=== PATIENT | female | born 1955 | race African-American/Black ===

== ENCOUNTER 2021-11-01 04:54 | Emergency (ER) | payer MEDICARE, MEDICAID, SELFPAY ==
--- NOTE | 2021-11-01 | ECG_ITS ---
Test Reason : CHEST PAIN Blood Pressure : / mmHG Vent. Rate : 089 BPM Atrial Rate : 089 BPM P-R Int : 172 ms QRS Dur : 066 ms QT Int : 320 ms P-R-T Axes : 012 012 063 degrees QTc Int : 389 ms Normal sinus rhythm Normal ECG No previous ECGs available Referred By: Generic ED Physician Electronically Signed By:LEONEL SHANKAR MD
--- NOTE | ~2021-11-01 | XR_ITS ---
EXAMINATION: XR CHEST CLINICAL INFORMATION: Chest pain. COMPARISON: None TECHNIQUE: Frontal view of the chest was obtained. FINDINGS: Images are obtained with right anterior oblique orientation. Making allowances for this orientation, the cardiac silhouette is grossly normal in size. No effusions or pneumothoraces identified. No focal pulmonary consolidation noted. Grossly normal pattern of pulmonary vasculature. XR/XR chest 1V IMPRESSION: No acute cardiopulmonary abnormalities.
[2021-11-01 05:04] VITALS: BP 130/79; BP 134/71; PULSE 101; PULSE 97; RESP 26; TEMP 36.6; O2SAT 95; O2SAT 96; BMI 39.8
[2021-11-01 06:02] LABS: Basophils Percent Auto 0.5 % (0-2); Eosinophils Absolute Auto 0.1 X10*3/uL (0.0-0.4); Eosinophils Percent Auto 1.7 % (0-4); Imm Gran Abs Auto 0.03 X10*3/uL (0.00-0.03); Imm Gran Pct Auto 0.4 % (0.0-0.4); Lymphocytes Absolute Auto 2.3 X10*3/uL (1.2-4.9); Lymphocytes Percent Auto 27.3 % (20-40); MANUAL DIFF FLAG NO; Mean Corpuscular HGB Conc 31.4 g/dl (31.0-35.0); Mean Corpuscular Hemoglobin 26.2 pg (27.0-33.0); Mean Corpuscular Volume 83.3 fL (80.0-98.0); Mean Platelet Volume 9.7 fL (9.4-12.3); Monocytes Absolute Auto 0.8 X10*3/uL (0.1-1.2); Monocytes Percent Auto 9.2 % (2-11); Neutrophils Absolute Auto 5.1 x10*3/uL (2.0-8.3); Neutrophils Percent Auto 60.9 % (45-73); Platelet Count 312 X10*3/uL (160-400); Red Cell Distribution Width 15.5 % (11.0-16.0); White Blood Count 8.3 X10*3/uL (4.8-10.8)
[2021-11-01 06:06] VITALS: BP 135/80; PULSE 90; RESP 29; O2SAT 95
[2021-11-01 06:22] LABS: Alanine Aminotransferase 22 U/L (0-31); Albumin Level 3.9 g/dL (3.5-5.0); Alkaline Phosphatase 103 U/L (39-117); Anion Gap 12 (12-20); Aspartate Amino Transferase 17 U/L (5-31); Bilirubin Direct < 0.2 mg/dL (0.0-0.5); Bilirubin Total < 0.2 mg/dL (0.0-1.0); Blood Urea Nitrogen 22 mg/dL (9-16); COVID-19 Test Negative (Negative); Carbon Dioxide 24 mmol/L (22-29); Chloride 113 mmol/L (96-108); Creatinine Clr Calc Pharmacy 57.4; Estimated Glomerular Filt Rate 50; Glucose Random 106 mg/dL (60-115); Magnesium 1.9 mg/dL (1.6-2.6); Potassium 4.8 mmol/L (3.3-5.1); Sodium 144 mmol/L (135-145); Total Protein 6.9 g/dL (6.5-8.0)
[2021-11-01 06:25] LABS: Troponin-I High Sensitivity 3.6 ng/L (<3.5-17.0)
--- NOTE | 2021-11-01 06:26 | ED.CHESTPAIN ---
HPI - Chest Pain General Chief Complaint: Chest Pain Stated Complaint: cp Time Seen by Provider: 11/01/21 05:16 Source: patient Mode of arrival: EMS Limitations: no limitations History of Present Illness HPI narrative: 66-year-old female who presents emergency department for evaluation of left-sided chest pain. Patient states that she has had constant chest pain x2 days. The patient points to her left anterior chest when asked to localize the pain. The pain is a constant, sharp pain which is worse with breathing and with coughing. The pain is 10/10 at its worst. Patient states she has a for 2 days. She also states she has had nausea. She denied fever, chills. She has had rhinorrhea. She denied sore throat. She feels short of breath but denied dyspnea on exertion. She denied abdominal pain frequency, urgency or dysuria. MD complaint: chest pain Pertinent past history: asthma Onset (ago): day(s) (2) Timing of current episode: constant Onset: during rest and during exertion Pain location: left chest (Anterior) Pain radiation: none Severity: severe Pain scale (0-10): 10 Quality: sharp Relieving factors: nothing Exacerbating factors: inspiration and other (Cough) Associated symptoms: nausea and cough Treatment prior to arrival: other (Aspirin) Risk Factors Coronary artery disease risk factors: none Related Data On Oral Contraceptives: No Previous Rx's Medication Instructions Recorded promethazine 25 mg rectal 25 mg MT Q6H PRN nausea and 11/01/21 suppository (Promethegan) vomiting #12 ea Allergies Allergy/AdvReac Type Severity Reaction Status Date / Time hydrocodone Allergy Unknown Verified 11/01/21 05:13 morphine Allergy Unknown Verified 11/01/21 05:13 naproxen [From Naprosyn] Allergy Unknown Verified 11/01/21 05:13 Penicillins Allergy Difficulty Verified 11/01/21 05:13 Breathing propoxyphene Allergy Unknown Verified 11/01/21 05:13 tramadol Allergy Unknown Verified 11/01/21 05:13 Review of Systems Review of Systems: Yes all other systems are reviewed and are negative [facility] Past Medical History [facility] Narrative: Past medical history: Anxiety, schizophrenia, asthma. Social history: The patient is residing in a [facility] facility. She denies tobacco, alcohol and drug use. Social History Social History Advance Directives: No Physical Exam Vital Signs: Vital Signs: Last Vital Signs Temp 98 F 11/01/21 05:04 Pulse 93 11/01/21 06:54 Resp 30 H 11/01/21 06:54 BP 128/86 11/01/21 06:54 Pulse Ox 95 11/01/21 06:54 O2 Del Method 11/01/21 06:54 BMI result Body Mass Index 39.8 Const: General: cooperative and no acute distress Orientation/consciousness: oriented to person and oriented to place Limitations: no limitations HEENT: Head: Yes normal to inspection, Yes normocephalic and Yes atraumatic Ears: external ears normal General nose exam: Normal external nose present Face and sinus: Yes normal facial exam Mouth: Normal oral and palatal mucosa present Throat: Yes posterior oropharynx normal Eyes: General: appearance normal, both eyes and all related structures Pupils: Equal, round and reactive pupils present Neck: Neck: Yes normal visual inspection, Yes no lymphadenopathy, Yes trachea midline and Yes supple Chest: Chest palpation & inspection: normal inspection of the chest and tenderness (Moderate chest wall tenderness) Resp: Effort & Inspection: normal respiratory effort and able to speak in complete sentences Auscultation: clear to auscultation bilaterally Cardio: Rate: regular rate Rhythm: regular rhythm Heart sounds: S1 normal heart sound present, S2 normal heart sound present and no murmurs GI: Inspection: Yes normal to inspection Palpation (GI): Soft to palpation, nontender and no guarding Auscultation: normal bowel sounds : General: Yes no CVA tenderness Back/Spine/Pelvis: Back: no CVA tenderness Skin: General skin exam: no rashes or lesions noted Neuro: General: oriented to person and oriented to place Cranial nerves: Yes CN's II-XII intact bilaterally and Yes Equal, round and reactive pupils present Cognition (Neuro): normal cognition Motor exam (neuro): 5/5 motor strength present throughout Extrem: General: Yes normal to inspection Psych: Appearance: grossly normal Speech and movement: Normal speech and movement present Affect: normal affect Attitude: cooperative Thought process: Normal thought process present Thought content: Normal thought content present Course Course Course Narrative: 66-year-old female who presents emergency department for evaluation of 2 days left anterior chest pain which is sharp, constant with no radiation. Patient has had a nonproductive cough x2 days. She has also had nausea and vomiting. Vital signs revealed an elevated respiratory rate of 26, otherwise unremarkable. Physical examination did reveal left sided chest wall tenderness and clear lungs. Laboratory evaluation including CBC, CMP, troponin, EKG, chest x-ray will be obtained. Patient was ordered to get normal saline IV x1 L. her nausea and pain were treated with Phenergan 12.5 mg IV and Toradol 15 mg IV. 0649: Laboratory evaluation: Anemia with an H&H of 11 and 35. Elevated BUN 22. High sensitivity troponin I detectable but not elevated at 3.6. COVID-19 was negative. Radiology evaluation: Chest x-ray was interpreted as no acute disease by the radiologist. EKG: Normal sinus rhythm with a rate of [address] segment elevation depression. 0931: Patient is feeling better, she states that her chest discomfort is improved but not resolved completely, she was ordered to get a 2nd dose of Toradol 15 mg IV. Patient also states that she is feeling anxious but she cannot take lorazepam therefore she was given Benadryl 50 mg IV. The patient was able to eat 2 sandwiches and drank juice without any difficulty. She will be discharged back to her care facility with a prescription for Phenergan 25 mg p.r. Q 6 hours as needed for nausea and vomiting. MDM - Chest Pain Lab Data Result diagrams: 11/01/21 05:54 11/01/21 05:54 Labs: Lab Results 11/01/21 11/01/21 11/01/21 Range/Units 05:54 05:54 05:54 WBC 8.3 (4.8-10.8) X10*3/uL RBC 4.20 (4.20-5.50) X10*6/uL Hgb 11.0 L (12.0-16.0) g/dl Hct 35.0 L (37.0-47.0) % MCV 83.3 (80.0-98.0) fL MCH 26.2 L (27.0-33.0) pg MCHC 31.4 (31.0-35.0) g/dl RDW 15.5 (11.0-16.0) % Plt Count 312 (160-400) X10*3/uL MPV 9.7 (9.4-12.3) fL Immature Gran % (Auto) 0.4 (0.0-0.4) % Neut % (Auto) 60.9 (45-73) % Lymph % (Auto) 27.3 (20-40) % [place] % (Auto) 9.2 (2-11) % Eos % (Auto) 1.7 (0-4) % Baso % (Auto) 0.5 (0-2) % Lymph # (Auto) 2.3 (1.2-4.9) X10*3/uL [place] # (Auto) 0.8 (0.1-1.2) X10*3/uL Eos # (Auto) 0.1 (0.0-0.4) X10*3/uL Baso # (Auto) 0.0 (0.0-0.2) X10*3/uL Abs Immat Gran (auto) 0.03 (0.00-0.03) X10*3/uL Absolute Neuts (auto) 5.1 (2.0-8.3) x10*3/uL Absolute Nucleated RBC 0.000 (0.0-0.012) X10*3/uL Nucleated RBC % (auto) 0.0 (0.0-0.2) /100WBC Sodium 144 (135-145) mmol/L Potassium 4.8 (3.3-5.1) mmol/L Chloride 113 H (96-108) mmol/L Carbon Dioxide 24 (22-29) mmol/L Anion Gap 12 (12-20) BUN 22 H (9-16) mg/dL Creatinine 1.10 (0.5-1.4) mg/dL Estim Creat Clear Calc 57.4 Estimated GFR 50 Random Glucose 106 (60-115) mg/dL Calcium 9.0 (8.4-10.2) mg/dL Magnesium 1.9 (1.6-2.6) mg/dL Total Bilirubin < 0.2 (0.0-1.0) mg/dL Direct Bilirubin < 0.2 (0.0-0.5) mg/dL AST 17 (5-31) U/L ALT 22 (0-31) U/L Alkaline Phosphatase 103 (39-117) U/L Troponin I High Sens 3.6 (<3.5-17.0) ng/L Total Protein 6.9 (6.5-8.0) g/dL Albumin 3.9 (3.5-5.0) g/dL COVID-19 ([facility]) (Negative) COVID-19 Clin Com 11/01/21 Range/Units 05:54 WBC (4.8-10.8) X10*3/uL RBC (4.20-5.50) X10*6/uL Hgb (12.0-16.0) g/dl Hct (37.0-47.0) % MCV (80.0-98.0) fL MCH (27.0-33.0) pg MCHC (31.0-35.0) g/dl RDW (11.0-16.0) % Plt Count (160-400) X10*3/uL MPV (9.4-12.3) fL Immature Gran % (Auto) (0.0-0.4) % Neut % (Auto) (45-73) % Lymph % (Auto) (20-40) % [place] % (Auto) (2-11) % Eos % (Auto) (0-4) % Baso % (Auto) (0-2) % Lymph # (Auto) (1.2-4.9) X10*3/uL [place] # (Auto) (0.1-1.2) X10*3/uL Eos # (Auto) (0.0-0.4) X10*3/uL Baso # (Auto) (0.0-0.2) X10*3/uL Abs Immat Gran (auto) (0.00-0.03) X10*3/uL Absolute Neuts (auto) (2.0-8.3) x10*3/uL Absolute Nucleated RBC (0.0-0.012) X10*3/uL Nucleated RBC % (auto) (0.0-0.2) /100WBC Sodium (135-145) mmol/L Potassium (3.3-5.1) mmol/L Chloride (96-108) mmol/L Carbon Dioxide (22-29) mmol/L Anion Gap (12-20) BUN (9-16) mg/dL Creatinine (0.5-1.4) mg/dL Estim Creat Clear Calc Estimated GFR Random Glucose (60-115) mg/dL Calcium (8.4-10.2) mg/dL Magnesium (1.6-2.6) mg/dL Total Bilirubin (0.0-1.0) mg/dL Direct Bilirubin (0.0-0.5) mg/dL AST (5-31) U/L ALT (0-31) U/L Alkaline Phosphatase (39-117) U/L Troponin I High Sens (<3.5-17.0) ng/L Total Protein (6.5-8.0) g/dL Albumin (3.5-5.0) g/dL COVID-19 ([facility]) Negative (Negative) COVID-19 Clin Com See Note ECG Data ECG #1: Attestation: I personally reviewed and interpreted this ECG as follows: Interpretation: 0651: Normal sinus rhythm with a rate of 89, normal intervals, no ST segment elevation, depression, no PACs, no PVCs, no significant T-wave abnormalities Discharge Plan Discharge Clinical Impression: Chest pain, Nausea & vomiting Patient Disposition: [facility] Transfer Details: Return back to patient's [facility] facility Instructions: Chest Pain (ED), Acute Nausea and Vomiting (ED) Additional Instructions: Your blood work was unremarkable. Your EKG was normal. Your chest x-ray was unremarkable. Your COVID-19 test was negative Your nausea was treated with Phenergan 12.5 mg IV and this seemed to improve the symptoms, your able to eat 2 sandwiches and drink juice which is reassuring. You also received Toradol IV for your chest pain and Benadryl 50 mg IV for your anxiety. Take Phenergan 25 mg suppositories, 1 suppository 6 hours as needed for nausea or vomiting. Follow-up with your doctor in 2 days. Please return to the emergency department if your symptoms get worse or if you develop any symptoms that are concerning to you. Prescriptions: New promethazine [Promethegan] 25 mg suppository 25 mg MT Q6H PRN (Reason: nausea and vomiting) Qty: 12 0RF
[2021-11-01 06:54] VITALS: BP 128/86; PULSE 93; RESP 30; O2SAT 95
[2021-11-01] MEDS: Ketorolac Tromethamine 15 MG/ML VIAL IVPUSH ×2 (07:19→09:37)
[2021-11-01] MEDS: 0.9 % Sodium Chloride 1,000 ML 999 ML IV (07:30)
[2021-11-01] MEDS: diphenhydrAMINE HCL 50 MG/ML VIAL IVPUSH (09:36)
== END 2021-11-01 10:57 | disposition skilled nursing facility (03) ==
PROVIDERS: Emergency Medicine; Emergency Provider Emergency Medicine Emergency Medical Services; PCP Internal Medicine
DX: R07.9 Chest pain, unspecified (principal); R11.2 Nausea with vomiting, unspecified; J45.909 Unspecified asthma, uncomplicated; Z20.822 Contact with and (suspected) exposure to COVID-19
CPT/HCPCS: 71045; 80048; 80076; 83735; 84484; 85025; 87635; 93005; 96361; 96374; 96375; 96376; 99284; 99285; J1200; J1885; J2550

== ENCOUNTER 2022-01-15 09:18 | Emergency (ER) | payer MEDICARE, MEDICAID, SELFPAY ==
--- NOTE | ~2022-01-15 | CT_ITS ---
EXAMINATION: CT HEAD WITHOUT CONTRAST CT CERVICAL SPINE WITHOUT CONTRAST CLINICAL INFORMATION: Reason for Exam gen weakness, fall COMPARISON: None. TECHNIQUE: Imaging was performed from the skull base to vertex without intravenous administration of contrast. In addition, helical noncontrast CT imaging was acquired through the cervical spine and source images were reviewed along with axial reconstructions and sagittal and coronal MPRs. This CT examination was performed using dose optimization techniques as appropriate, variously including the following: *Automated exposure control. *Adjustment of mA and/or kV according to patient size (this includes techniques or standardized protocols for targeted exams where dose is matched to indication/reason for exam; i.e. extremities or head). *Use of iterative reconstruction technique. Total exam dose-length product 1750 mGy-cm FINDINGS: HEAD: No intracranial mass, hemorrhage, or midline shift is visualized. The ventricles and sulci are age-appropriate. No extra-axial collections are identified. The paranasal sinuses and mastoid air cells are well aerated. CERVICAL SPINE: Evaluation is suboptimal due to motion related artifacts. Grossly, there is no evidence of any fracture, subluxation or dislocation is present. Multilevel moderate degenerative spondylosis related changes are noted within the lower cervical spine. No prevertebral or paravertebral soft tissue abnormality is identified. Limited assessment of the lung apices is unremarkable. CT/CT cervical spine wo IV con IMPRESSION: 1. No acute intracranial pathology. 2. Evaluation of the cervical spine is technically limited due to motion related artifacts. No gross evidence of any fracture, subluxation or dislocation. Multilevel moderate degenerative spondylosis at lower cervical spine.
--- NOTE | ~2022-01-15 | XR_ITS ---
EXAMINATION: CHEST, BILATERAL SHOULDER, BILATERAL KNEE CLINICAL INFORMATION: Fall, injury. COMPARISON: None TECHNIQUE: Each shoulder 3 views. Each knee 4 views. Chest 2 views. FINDINGS: Right shoulder: The glenohumeral joint space is mildly reduced. There is loss of right AC joint space with periarticular spurring. No bony erosive changes. No visible acute fracture, dislocation or subluxation seen. The soft tissues are normal. Left shoulder: The glenohumeral joint space is normal. There is mild reduction in the left AC joint space. The there is inferior acromial spurring. No visible acute fracture or dislocation seen. Right knee: There is moderate loss of medial compartment joint space with moderate periarticular spurring. The lateral compartment joint space is normal. No visible acute fracture, dislocation or subluxation seen. No abnormal suprapatellar joint effusion seen. There is moderate-sized anterior superior patellar enthesophyte. Left knee: There is moderate loss of medial and patellofemoral compartment joint space with periarticular spurring. There is moderate anterior superior patellar enthesophyte. No abnormal joint effusion. No bony erosive changes. No visible acute fracture or dislocation seen. Chest x-ray: The lungs are somewhat expanded with patchy opacity seen in the right lung base likely atelectasis with elevated right posterior hemidiaphragm heart size and pulmonary vascularity is normal. No gross bony abnormality seen. XR/XR knee LT 4V IMPRESSION: Elevated right hemidiaphragm with likely right lower lobe atelectasis. Rest lungs are clear. Mild degenerative changes bilateral knee joints but no acute fracture or dislocation seen. No joint effusion seen. Mild degenerative changes bilateral AC joint. No visible acute fracture dislocation involving the shoulders.
--- NOTE | ~2022-01-15 | XR_ITS ---
EXAMINATION: CHEST, BILATERAL SHOULDER, BILATERAL KNEE CLINICAL INFORMATION: Fall, injury. COMPARISON: None TECHNIQUE: Each shoulder 3 views. Each knee 4 views. Chest 2 views. FINDINGS: Right shoulder: The glenohumeral joint space is mildly reduced. There is loss of right AC joint space with periarticular spurring. No bony erosive changes. No visible acute fracture, dislocation or subluxation seen. The soft tissues are normal. Left shoulder: The glenohumeral joint space is normal. There is mild reduction in the left AC joint space. The there is inferior acromial spurring. No visible acute fracture or dislocation seen. Right knee: There is moderate loss of medial compartment joint space with moderate periarticular spurring. The lateral compartment joint space is normal. No visible acute fracture, dislocation or subluxation seen. No abnormal suprapatellar joint effusion seen. There is moderate-sized anterior superior patellar enthesophyte. Left knee: There is moderate loss of medial and patellofemoral compartment joint space with periarticular spurring. There is moderate anterior superior patellar enthesophyte. No abnormal joint effusion. No bony erosive changes. No visible acute fracture or dislocation seen. Chest x-ray: The lungs are somewhat expanded with patchy opacity seen in the right lung base likely atelectasis with elevated right posterior hemidiaphragm heart size and pulmonary vascularity is normal. No gross bony abnormality seen. XR/XR shoulder LT min 2V IMPRESSION: Elevated right hemidiaphragm with likely right lower lobe atelectasis. Rest lungs are clear. Mild degenerative changes bilateral knee joints but no acute fracture or dislocation seen. No joint effusion seen. Mild degenerative changes bilateral AC joint. No visible acute fracture dislocation involving the shoulders.
--- NOTE | ~2022-01-15 | CT_ITS ---
EXAMINATION: CT HEAD WITHOUT CONTRAST CT CERVICAL SPINE WITHOUT CONTRAST CLINICAL INFORMATION: Reason for Exam gen weakness, fall COMPARISON: None. TECHNIQUE: Imaging was performed from the skull base to vertex without intravenous administration of contrast. In addition, helical noncontrast CT imaging was acquired through the cervical spine and source images were reviewed along with axial reconstructions and sagittal and coronal MPRs. This CT examination was performed using dose optimization techniques as appropriate, variously including the following: *Automated exposure control. *Adjustment of mA and/or kV according to patient size (this includes techniques or standardized protocols for targeted exams where dose is matched to indication/reason for exam; i.e. extremities or head). *Use of iterative reconstruction technique. Total exam dose-length product 1750 mGy-cm FINDINGS: HEAD: No intracranial mass, hemorrhage, or midline shift is visualized. The ventricles and sulci are age-appropriate. No extra-axial collections are identified. The paranasal sinuses and mastoid air cells are well aerated. CERVICAL SPINE: Evaluation is suboptimal due to motion related artifacts. Grossly, there is no evidence of any fracture, subluxation or dislocation is present. Multilevel moderate degenerative spondylosis related changes are noted within the lower cervical spine. No prevertebral or paravertebral soft tissue abnormality is identified. Limited assessment of the lung apices is unremarkable. CT/CT head/brain wo IV con IMPRESSION: 1. No acute intracranial pathology. 2. Evaluation of the cervical spine is technically limited due to motion related artifacts. No gross evidence of any fracture, subluxation or dislocation. Multilevel moderate degenerative spondylosis at lower cervical spine.
--- NOTE | ~2022-01-15 | XR_ITS ---
EXAMINATION: CHEST, BILATERAL SHOULDER, BILATERAL KNEE CLINICAL INFORMATION: Fall, injury. COMPARISON: None TECHNIQUE: Each shoulder 3 views. Each knee 4 views. Chest 2 views. FINDINGS: Right shoulder: The glenohumeral joint space is mildly reduced. There is loss of right AC joint space with periarticular spurring. No bony erosive changes. No visible acute fracture, dislocation or subluxation seen. The soft tissues are normal. Left shoulder: The glenohumeral joint space is normal. There is mild reduction in the left AC joint space. The there is inferior acromial spurring. No visible acute fracture or dislocation seen. Right knee: There is moderate loss of medial compartment joint space with moderate periarticular spurring. The lateral compartment joint space is normal. No visible acute fracture, dislocation or subluxation seen. No abnormal suprapatellar joint effusion seen. There is moderate-sized anterior superior patellar enthesophyte. Left knee: There is moderate loss of medial and patellofemoral compartment joint space with periarticular spurring. There is moderate anterior superior patellar enthesophyte. No abnormal joint effusion. No bony erosive changes. No visible acute fracture or dislocation seen. Chest x-ray: The lungs are somewhat expanded with patchy opacity seen in the right lung base likely atelectasis with elevated right posterior hemidiaphragm heart size and pulmonary vascularity is normal. No gross bony abnormality seen. XR/XR knee RT 4V IMPRESSION: Elevated right hemidiaphragm with likely right lower lobe atelectasis. Rest lungs are clear. Mild degenerative changes bilateral knee joints but no acute fracture or dislocation seen. No joint effusion seen. Mild degenerative changes bilateral AC joint. No visible acute fracture dislocation involving the shoulders.
--- NOTE | ~2022-01-15 | XR_ITS ---
EXAMINATION: CHEST, BILATERAL SHOULDER, BILATERAL KNEE CLINICAL INFORMATION: Fall, injury. COMPARISON: None TECHNIQUE: Each shoulder 3 views. Each knee 4 views. Chest 2 views. FINDINGS: Right shoulder: The glenohumeral joint space is mildly reduced. There is loss of right AC joint space with periarticular spurring. No bony erosive changes. No visible acute fracture, dislocation or subluxation seen. The soft tissues are normal. Left shoulder: The glenohumeral joint space is normal. There is mild reduction in the left AC joint space. The there is inferior acromial spurring. No visible acute fracture or dislocation seen. Right knee: There is moderate loss of medial compartment joint space with moderate periarticular spurring. The lateral compartment joint space is normal. No visible acute fracture, dislocation or subluxation seen. No abnormal suprapatellar joint effusion seen. There is moderate-sized anterior superior patellar enthesophyte. Left knee: There is moderate loss of medial and patellofemoral compartment joint space with periarticular spurring. There is moderate anterior superior patellar enthesophyte. No abnormal joint effusion. No bony erosive changes. No visible acute fracture or dislocation seen. Chest x-ray: The lungs are somewhat expanded with patchy opacity seen in the right lung base likely atelectasis with elevated right posterior hemidiaphragm heart size and pulmonary vascularity is normal. No gross bony abnormality seen. XR/XR shoulder RT min 2V IMPRESSION: Elevated right hemidiaphragm with likely right lower lobe atelectasis. Rest lungs are clear. Mild degenerative changes bilateral knee joints but no acute fracture or dislocation seen. No joint effusion seen. Mild degenerative changes bilateral AC joint. No visible acute fracture dislocation involving the shoulders.
--- NOTE | ~2022-01-15 | XR_ITS ---
EXAMINATION: CHEST, BILATERAL SHOULDER, BILATERAL KNEE CLINICAL INFORMATION: Fall, injury. COMPARISON: None TECHNIQUE: Each shoulder 3 views. Each knee 4 views. Chest 2 views. FINDINGS: Right shoulder: The glenohumeral joint space is mildly reduced. There is loss of right AC joint space with periarticular spurring. No bony erosive changes. No visible acute fracture, dislocation or subluxation seen. The soft tissues are normal. Left shoulder: The glenohumeral joint space is normal. There is mild reduction in the left AC joint space. The there is inferior acromial spurring. No visible acute fracture or dislocation seen. Right knee: There is moderate loss of medial compartment joint space with moderate periarticular spurring. The lateral compartment joint space is normal. No visible acute fracture, dislocation or subluxation seen. No abnormal suprapatellar joint effusion seen. There is moderate-sized anterior superior patellar enthesophyte. Left knee: There is moderate loss of medial and patellofemoral compartment joint space with periarticular spurring. There is moderate anterior superior patellar enthesophyte. No abnormal joint effusion. No bony erosive changes. No visible acute fracture or dislocation seen. Chest x-ray: The lungs are somewhat expanded with patchy opacity seen in the right lung base likely atelectasis with elevated right posterior hemidiaphragm heart size and pulmonary vascularity is normal. No gross bony abnormality seen. XR/XR chest 2V IMPRESSION: Elevated right hemidiaphragm with likely right lower lobe atelectasis. Rest lungs are clear. Mild degenerative changes bilateral knee joints but no acute fracture or dislocation seen. No joint effusion seen. Mild degenerative changes bilateral AC joint. No visible acute fracture dislocation involving the shoulders.
--- NOTE | 2022-01-15 09:25 | ED.FALL ---
HPI - Fall General Chief Complaint: Fall Stated Complaint: FALL,LT SHLDR PAIN,-THINNERS,-LOC Time Seen by Provider: 01/15/22 09:24 Source: patient and EMS Mode of arrival: EMS Limitations: no limitations History of Present Illness HPI Narrative: 66 yo female with history of anxiety, asthma, schizophrenia coming from [facility] with reports of fall. Patient reports for the last 2 days she has felt generally weak. Today while walking she lost her balance striking her left shoulder on the wall and landing on both of her knees. Pain in left shoulder and difficulty moving her arm d/t pain. She denies any hitting of the head or loss of consciousness. She denies pre fall symptoms of dizziness, palpitations, headache, chest pain, shortness of breath. She denies any cough, fever or urinary symptoms. She is not on any AC therapy. Related Data Previous Rx's Medication Instructions Recorded promethazine 25 mg rectal 25 mg MI Q6H PRN nausea and 11/01/21 suppository (Promethegan) vomiting #12 ea Allergies Allergy/AdvReac Type Severity Reaction Status Date / Time hydrocodone Allergy Unknown Verified 11/01/21 05:13 morphine Allergy Unknown Verified 11/01/21 05:13 naproxen [From Naprosyn] Allergy Unknown Verified 11/01/21 05:13 Penicillins Allergy Difficulty Verified 11/01/21 05:13 Breathing propoxyphene Allergy Unknown Verified 11/01/21 05:13 tramadol Allergy Unknown Verified 11/01/21 05:13 Review of Systems Review of Systems: Yes all other systems are reviewed and are negative Constitutional: Constitutional: Reports no additional constitutional complaints, Denies body ache(s), Denies chills, Denies fever(s), Denies headache(s) and Reports weakness Eyes: Eyes: Reports no additional eye complaints and Denies change in vision ENT: Reports system reviewed and no additional complaints, except as documented, Denies dizziness, Denies headache(s), Denies nasal congestion, Denies nasal discharge and Denies neck pain Cardiovascular: Cardiovascular: Reports no additional cardiovascular complaints, Denies chest pain, Denies leg edema and Denies dyspnea Respiratory: Respiratory: Reports no additional respiratory complaints, Denies cough and Denies dyspnea Gastrointestinal: Gastrointestinal: Reports no additional gastrointestinal complaints, Denies abdominal pain, Denies diarrhea, Denies nausea and Denies vomiting Genitourinary: Genitourinary: Reports no additional female genitourinary complaints and Denies urinary incontinence Musculoskeletal: Musculoskeletal: Reports no additional musculoskeletal complaints, Denies back pain, Reports arthralgias, Reports joint swelling, Reports limited range of motion, Denies neck pain, Denies numbness and Denies tingling Integumentary/Breasts: Skin/Breast: Reports system reviewed and no additional complaints, except as docu and Denies rash Neurologic: Reports system reviewed and no additional complaints, except as documented, Denies Abnormal speech present, Denies dizziness, Denies headache(s), Denies numbness, Denies tingling and Reports weakness PMFSH Past Medical History Attestation statement: The following information was validated with the patient. Source: old records reviewed and nursing notes reviewed Social History Social History Alcohol intake: never Patient Tobacco Use Status: Never used Tobacco Use of substances other than those prescribed or required for medical reasons: No Advance Directives: Yes Advance Directives on File: Yes Advance Directives Date on File: 11/03/21 Physical Exam Vital Signs: Vital Signs: Last Vital Signs Temp 98.8 F 01/15/22 15:39 Pulse 92 01/15/22 15:39 Resp 16 01/15/22 13:35 BP 104/80 01/15/22 15:39 Pulse Ox 96 01/15/22 15:39 O2 Del Method 01/15/22 15:39 BMI result Body Mass Index 41.1 Const: General: cooperative, healthy appearing, comfortable and no acute distress Orientation/consciousness: patient oriented x3 Limitations: no limitations HEENT: Head: Yes normal to inspection Ears: hearing grossly normal bilaterally and TM's normal bilaterally General nose exam: Normal external nose present Face and sinus: Yes normal facial exam Mouth: Normal oral and palatal mucosa present Throat: Yes posterior oropharynx normal Eyes: General: appearance normal, both eyes and all related structures Pupils: Equal, round and reactive pupils present Neck: Other: No midline tenderness/step offs or deformities Neck: Yes normal visual inspection, Yes full ROM, Yes no lymphadenopathy and Yes no meningeal signs Chest: Chest palpation & inspection: normal inspection of the chest Resp: Effort & Inspection: normal respiratory effort Auscultation: clear to auscultation bilaterally Cardio: Rate: regular rate Rhythm: regular rhythm Peripheral pulses: Peripheral pulses 2+ throughout GI: Inspection: Yes normal to inspection Palpation (GI): Soft to palpation and nontender Auscultation: normal bowel sounds Back/Spine/Pelvis: Thoracic/Lumbar Spine: thoracic and lumbar spine normal to inspection Skin: General skin exam: no rashes or lesions noted Neuro: Other: Strength 4/5 all four extremities General: patient oriented x3, moves all extremities, no meningeal signs, no focal motor deficits, normal sensation to monofilament and Unable to assess gait Cranial nerves: Yes CN's II-XII intact bilaterally, Yes Equal, round and reactive pupils present, Yes Bilaterally intact EOM present, Yes Nystagmus not present, Yes Normal facial strength present and Yes Midline tongue present Cognition (Neuro): normal cognition Speech: No Abnormal speech present Gait exam (Neuro): Unable to assess gait Sensory Exam: Normal double simultaneous stimulation for sensation Extrem: Other: Tenderness to bilateral anterior knees with no obvious swelling, ecchymosis or deformity. FROM Tenderness to left proximal humerus and distal clavicle with limited abduction d/t pain. NV intact distally. General: Yes normal to inspection Course Course Course Narrative: Labs are unremarkable. CT head and neck show no acute finding. X-ray show no acute fracture. UA is negative for infection. Plan for discharge back to [facility] MDM - Fall MDM Narrative Medical decision making narrative: 66 yo female from SNF with reports of fall which patient reports is secondary to loss of balance with several days of generalized weakness. No focal neurological finding. VSS. Fall with landing on both knees and striking left shoulder. Needs x-ray. Also r/o underlying cause of gen weakness so will obtain CT head/cervical spine, EKG, labs, UA Medical Records Attestation: I reviewed the patient's medical records. Lab Data Attestation: I reviewed the patient's lab results. Result diagrams: 01/15/22 12:26 01/15/22 Unknown Labs: Lab Results 01/15/22 01/15/22 01/15/22 Range/Units 11:50 12:26 12:26 WBC 8.0 (4.8-10.8) X10*3/uL RBC 4.51 (4.20-5.50) X10*6/uL Hgb 11.9 L (12.0-16.0) g/dl Hct 37.6 (37.0-47.0) % MCV 83.4 (80.0-98.0) fL MCH 26.4 L (27.0-33.0) pg MCHC 31.6 (31.0-35.0) g/dl RDW 15.5 (11.0-16.0) % Plt Count 302 (160-400) X10*3/uL MPV 9.8 (9.4-12.3) fL Immature Gran % (Auto) 0.5 H (0.0-0.4) % Neut % (Auto) 61.3 (45-73) % Lymph % (Auto) 26.7 (20-40) % [place] % (Auto) 9.6 (2-11) % Eos % (Auto) 1.1 (0-4) % Baso % (Auto) 0.8 (0-2) % Lymph # (Auto) 2.1 (1.2-4.9) X10*3/uL [place] # (Auto) 0.8 (0.1-1.2) X10*3/uL Eos # (Auto) 0.1 (0.0-0.4) X10*3/uL Baso # (Auto) 0.1 (0.0-0.2) X10*3/uL Abs Immat Gran (auto) 0.04 H (0.00-0.03) X10*3/uL Absolute Neuts (auto) 4.9 (2.0-8.3) x10*3/uL Absolute Nucleated RBC 0.000 (0.0-0.012) X10*3/uL Nucleated RBC % (auto) 0.0 (0.0-0.2) /100WBC Sodium (135-145) mmol/L Potassium (3.3-5.1) mmol/L Chloride (96-108) mmol/L Carbon Dioxide (22-29) mmol/L Anion Gap (12-20) BUN (9-16) mg/dL Creatinine (0.5-1.4) mg/dL Estim Creat Clear Calc Estimated GFR Random Glucose (60-115) mg/dL Calcium (8.4-10.2) mg/dL Magnesium (1.6-2.6) mg/dL Total Bilirubin (0.0-1.0) mg/dL Direct Bilirubin (0.0-0.5) mg/dL AST (5-31) U/L ALT (0-31) U/L Alkaline Phosphatase (39-117) U/L Troponin I High Sens < 3.5 (<3.5-17.0) ng/L Total Protein (6.5-8.0) g/dL Albumin (3.5-5.0) g/dL Urine Color Yellow Urine Appearance Clear Urine pH 5.5 (5.0-9.0) Ur Specific [place] 1.020 (1.005-1.025) Urine Protein 100 (2+) H (Neg-Trace) mg/dL Urine Glucose (UA) Negative (Negative) mg/dL Urine Ketones Negative (Negative) mg/dL Urine Blood Negative (Negative) Urine Nitrite Negative (Negative) Ur Leukocyte Esterase Negative (Negative) Urine RBC 0-2 (0-2) /HPF Urine WBC 0-5 (0-5) /HPF Ur Squamous Epith Cells 3-5 (0-2) /HPF Urine Bacteria None Seen (None Seen) Hyaline Casts 0-2 (0-2) /LPF 01/15/22 Range/Units Unknown WBC (4.8-10.8) X10*3/uL RBC (4.20-5.50) X10*6/uL Hgb (12.0-16.0) g/dl Hct (37.0-47.0) % MCV (80.0-98.0) fL MCH (27.0-33.0) pg MCHC (31.0-35.0) g/dl RDW (11.0-16.0) % Plt Count (160-400) X10*3/uL MPV (9.4-12.3) fL Immature Gran % (Auto) (0.0-0.4) % Neut % (Auto) (45-73) % Lymph % (Auto) (20-40) % [place] % (Auto) (2-11) % Eos % (Auto) (0-4) % Baso % (Auto) (0-2) % Lymph # (Auto) (1.2-4.9) X10*3/uL [place] # (Auto) (0.1-1.2) X10*3/uL Eos # (Auto) (0.0-0.4) X10*3/uL Baso # (Auto) (0.0-0.2) X10*3/uL Abs Immat Gran (auto) (0.00-0.03) X10*3/uL Absolute Neuts (auto) (2.0-8.3) x10*3/uL Absolute Nucleated RBC (0.0-0.012) X10*3/uL Nucleated RBC % (auto) (0.0-0.2) /100WBC Sodium 140 (135-145) mmol/L Potassium 5.4 H (3.3-5.1) mmol/L Chloride 111 H (96-108) mmol/L Carbon Dioxide 14 L (22-29) mmol/L Anion Gap 20 (12-20) BUN 16 (9-16) mg/dL Creatinine 0.86 (0.5-1.4) mg/dL Estim Creat Clear Calc 74.7 Estimated GFR > 60 Random Glucose 99 (60-115) mg/dL Calcium 8.4 D (8.4-10.2) mg/dL Magnesium 1.9 (1.6-2.6) mg/dL Total Bilirubin 0.2 (0.0-1.0) mg/dL Direct Bilirubin < 0.2 (0.0-0.5) mg/dL AST 25 D (5-31) U/L ALT 23 (0-31) U/L Alkaline Phosphatase 88 (39-117) U/L Troponin I High Sens (<3.5-17.0) ng/L Total Protein 7.2 (6.5-8.0) g/dL Albumin 3.7 (3.5-5.0) g/dL Urine Color Urine Appearance Urine pH (5.0-9.0) Ur Specific [place] (1.005-1.025) Urine Protein (Neg-Trace) mg/dL Urine Glucose (UA) (Negative) mg/dL Urine Ketones (Negative) mg/dL Urine Blood (Negative) Urine Nitrite (Negative) Ur Leukocyte Esterase (Negative) Urine RBC (0-2) /HPF Urine WBC (0-5) /HPF Ur Squamous Epith Cells (0-2) /HPF Urine Bacteria (None Seen) Hyaline Casts (0-2) /LPF Imaging Data Chest x-ray: Attestation: I personally reviewed and interpreted this imaging study as follows: Radiologist's impression: Chest x-ray: The lungs are somewhat expanded with patchy opacity seen in the right lung base likely atelectasis with elevated right posterior hemidiaphragm heart size and pulmonary vascularity is normal. No gross bony abnormality seen. bilateral knee x-rays: Attestation: I personally reviewed and interpreted this imaging study as follows: Radiologist's impression: Right knee: There is moderate loss of medial compartment joint space with moderate periarticular spurring. The lateral compartment joint space is normal. No visible acute fracture, dislocation or subluxation seen. No abnormal suprapatellar joint effusion seen. There is moderate-sized anterior superior patellar enthesophyte. Left knee: There is moderate loss of medial and patellofemoral compartment joint space with periarticular spurring. There is moderate anterior superior patellar enthesophyte. No abnormal joint effusion. No bony erosive changes. No visible acute fracture or dislocation seen. shoulder x-ray bilateral: Attestation: I personally reviewed and interpreted this imaging study as follows: Radiologist's impression: FINDINGS: Right shoulder: The glenohumeral joint space is mildly reduced. There is loss of right AC joint space with periarticular spurring. No bony erosive changes. No visible acute fracture, dislocation or subluxation seen. The soft tissues are normal. Left shoulder: The glenohumeral joint space is normal. There is mild reduction in the left AC joint space. The there is inferior acromial spurring. No visible acute fracture or dislocation seen. CT scan - head: Attestation: I personally reviewed and interpreted this imaging study as follows: Radiologist's impression: HEAD: No intracranial mass, hemorrhage, or midline shift is visualized. The ventricles and sulci are age-appropriate. No extra-axial collections are identified. The paranasal sinuses and mastoid air cells are well aerated. CERVICAL SPINE: Evaluation is suboptimal due to motion related artifacts. Grossly, there is no evidence of any fracture, subluxation or dislocation is present. Multilevel moderate degenerative spondylosis related changes are noted within the lower cervical spine. No prevertebral or paravertebral soft tissue abnormality is identified. Limited assessment of the lung apices is unremarkable. CT/CT head/brain wo IV con IMPRESSION: 1. No acute intracranial pathology. 2. Evaluation of the cervical spine is technically limited due to motion related artifacts. No gross evidence of any fracture, subluxation or dislocation. Multilevel moderate degenerative spondylosis at lower cervical spine. ECG Data Attestation: I personally reviewed and interpreted this ECG as follows: ECG interpretation date: 01/15/22 ECG interpretation time: 09:32 Interpretation: Normal sinus rhythm with a rate 83, normal MI, normal QRS, normal QT Discharge Plan Discharge Clinical Impression: Contusion of left shoulder, Accident due to mechanical fall without injury Patient Disposition: Xfer [facility] Transfer Details: [facility] Prescriptions: No Action promethazine [Promethegan] 25 mg suppository 25 mg MI Q6H PRN (Reason: nausea and vomiting) Qty: 12 0RF
[2022-01-15 09:29] VITALS: BP 130/70; PULSE 90; O2SAT 95; BMI 41.1
--- NOTE | 2022-01-15 09:35 | ECG_ITS ---
Test Reason : fall Blood Pressure : / mmHG Vent. Rate : 083 BPM Atrial Rate : 083 BPM P-R Int : 182 ms QRS Dur : 074 ms QT Int : 352 ms P-R-T Axes : 007 010 051 degrees QTc Int : 413 ms Normal sinus rhythm Normal ECG When compared with ECG of 01-NOV-2021 05:09, No significant change was found Referred By: Jennyfer Chavez Electronically Signed By:ALINE GREENE
[2022-01-15 09:36] VITALS: BP 134/73; PULSE 88; RESP 14; TEMP 37.1; O2SAT 95
[2022-01-15] MEDS: Acetaminophen 325 MG TABLET 975 MG PO (10:30)
--- NOTE | 2022-01-15 11:42 | PC.NURSE ---
Patient difficult to get labs from. Phlebotomy called. Provider notified.
[2022-01-15 12:26] LABS: Appearance Urine Clear; Color Urine Yellow; Glucose Urine UA Negative (Negative); Leukocyte Esterase Urine Negative (Negative); Nitrite Urine Negative (Negative); PH 5.5 (5.0-9.0); Urine Blood Negative (Negative); Urine Ketones Negative (Negative); Urine Protein 100 (2+) mg/dL (Neg-Trace)
[2022-01-15 12:30] LABS: Bacteria Urine None Seen (None Seen); Hyaline Casts Urine 0-2 /LPF (0-2); RBC Urine 0-2 /HPF (0-2); WBC Urine 0-5 /HPF (0-5)
[2022-01-15 12:32] LABS: MANUAL DIFF FLAG NO
[2022-01-15 12:33] LABS: Basophils Absolute Auto 0.1 X10*3/uL (0.0-0.2); Basophils Percent Auto 0.8 % (0-2); Eosinophils Absolute Auto 0.1 X10*3/uL (0.0-0.4); Eosinophils Percent Auto 1.1 % (0-4); Hematocrit 37.6 % (37.0-47.0); Hemoglobin 11.9 g/dl (12.0-16.0); Imm Gran Abs Auto 0.04 X10*3/uL (0.00-0.03); Imm Gran Pct Auto 0.5 % (0.0-0.4); Lymphocytes Absolute Auto 2.1 X10*3/uL (1.2-4.9); Lymphocytes Percent Auto 26.7 % (20-40); Mean Corpuscular HGB Conc 31.6 g/dl (31.0-35.0); Mean Corpuscular Hemoglobin 26.4 pg (27.0-33.0); Mean Corpuscular Volume 83.4 fL (80.0-98.0); Mean Platelet Volume 9.8 fL (9.4-12.3); Monocytes Absolute Auto 0.8 X10*3/uL (0.1-1.2); Monocytes Percent Auto 9.6 % (2-11); Neutrophils Absolute Auto 4.9 x10*3/uL (2.0-8.3); Neutrophils Percent Auto 61.3 % (45-73); Platelet Count 302 X10*3/uL (160-400); Red Blood Count 4.51 X10*6/uL (4.20-5.50); Red Cell Distribution Width 15.5 % (11.0-16.0)
[2022-01-15 13:10] LABS: Troponin-I High Sensitivity < 3.5 ng/L (<3.5-17.0)
[2022-01-15 13:35] VITALS: BP 121/86; PULSE 73; RESP 16; O2SAT 95
[2022-01-15 13:39] LABS: Alanine Aminotransferase 23 U/L (0-31); Albumin Level 3.7 g/dL (3.5-5.0); Alkaline Phosphatase 88 U/L (39-117); Anion Gap 20 (12-20); Aspartate Amino Transferase 25 U/L (5-31); Bilirubin Direct < 0.2 mg/dL (0.0-0.5); Bilirubin Total 0.2 mg/dL (0.0-1.0); Blood Urea Nitrogen 16 mg/dL (9-16); Calcium 8.4 mg/dL (8.4-10.2); Carbon Dioxide 14 mmol/L (22-29); Chloride 111 mmol/L (96-108); Creatinine Clr Calc Pharmacy 74.7; Estimated Glomerular Filt Rate > 60; Glucose Random 99 mg/dL (60-115); Magnesium 1.9 mg/dL (1.6-2.6); Potassium 5.4 mmol/L (3.3-5.1); Sodium 140 mmol/L (135-145); Total Protein 7.2 g/dL (6.5-8.0)
[2022-01-15 15:39] VITALS: BP 104/80; PULSE 92; TEMP 37.1; O2SAT 96
== END 2022-01-15 17:58 | disposition skilled nursing facility (03) ==
PROVIDERS: Nurse Practitioner Family; Emergency Provider Student in an Organized Health Care Education/Training Program; PCP Internal Medicine
DX: S40.012A Contusion of left shoulder, initial encounter (principal); R51.9 Headache, unspecified; M25.512 Pain in left shoulder; M54.2 Cervicalgia; W01.0XXA Fall on same level from slipping, tripping and stumbling without subsequent striking against object, initial encounter; Y93.9 Activity, unspecified; Y92.9 Unspecified place or not applicable; Y99.9 Unspecified external cause status; Z79.899 Other long term (current) drug therapy
CPT/HCPCS: 36415; 70450; 71046; 72125; 73030; 73564; 80048; 80076; 81001; 83735; 84484; 85025; 93005; 99284

== ENCOUNTER 2022-04-18 21:27 | Emergency (ER) | payer MEDICARE, MEDICAID, SELFPAY ==
--- NOTE | ~2022-04-18 | CT_ITS ---
EXAMINATION: CT ABDOMEN AND PELVIS WITHOUT CONTRAST CLINICAL INFORMATION: Low suspicion SBO COMPARISON: None TECHNIQUE: Multidetector volumetric imaging was performed from the superior aspect of the liver through the pubic symphysis. Sagittal and coronal reformatted images were obtained on the technologist's workstation. This CT examination was performed using dose optimization techniques as appropriate, variously including the following: *Automated exposure control *Adjustment of mA and/or kV according to patient size (this includes techniques or standardized protocols for targeted exams where dose is matched to indication/reason for exam; i.e. extremities or head) *Use of iterative reconstruction technique DLP: 843 mGy-cm FINDINGS: LUNG BASES: Atelectasis noted in the right lower lobe adjacent to a large hiatal hernia. LIVER, GALLBLADDER, AND BILIARY TREE: The liver is normal in size, shape, and attenuation. No focal hepatic lesion or biliary ductal dilatation is identified. Gallbladder appears contracted. PANCREAS: Pancreas is partially contained within a hiatal hernia. No appreciable surrounding stranding. SPLEEN: Unremarkable. ADRENAL GLANDS: Unremarkable. KIDNEYS AND URETERS: The kidneys are normal in size, shape, and attenuation. No hydronephrosis, hydroureter, or calculi seen. No perinephric stranding. BLADDER: Nearly empty and not well evaluated. GASTROINTESTINAL TRACT: Large hiatal hernia containing essentially the entire stomach. No evidence of bowel obstruction. There is mild colonic diverticulosis without diverticulitis. No significant bowel wall thickening is seen. No free fluid or free air is seen. ABDOMINAL WALL: No significant hernia is appreciated. LYMPH NODES: Normal. VASCULAR: Minimal scattered atherosclerotic calcification. PELVIC VISCERA: Patient is status post hysterectomy. OSSEOUS STRUCTURES: Grade 2 anterolisthesis of L5 on S1 the setting of facet arthropathy. CT/CT abdomen pelvis wo IV con IMPRESSION: No evidence of bowel obstruction. Large hiatal hernia containing essentially the entire stomach.
--- NOTE | ~2022-04-18 | XR_ITS ---
EXAMINATION: XR CHEST CLINICAL INFORMATION: Bilateral crackles. COMPARISON: Chest x-ray 01/25/2022 TECHNIQUE: Frontal portable view of the chest was obtained. 10:52 PM FINDINGS: Similar density at the right lung base likely due to eventration of the diaphragm on the right with right basilar atelectasis. Left lung normally aerated. Heart size is normal. Cardiac mediastinal contours are normal. No pulmonary vascular congestion. No pleural effusion or pneumothorax. XR/XR chest 1V IMPRESSION: 1. No acute abnormality of chest. 2. 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
[2022-04-18 21:39] VITALS: BP 153/101; BP 165/105; PULSE 79; PULSE 85; RESP 20; TEMP 36.8; O2SAT 96; O2SAT 97; BMI 42.5
--- NOTE | 2022-04-18 21:40 | ECG_ITS ---
Test Reason : CHEST PAIN Blood Pressure : / mmHG Vent. Rate : 080 BPM Atrial Rate : 080 BPM P-R Int : 172 ms QRS Dur : 066 ms QT Int : 344 ms P-R-T Axes : 043 011 059 degrees QTc Int : 396 ms Artifact in tracing Normal sinus rhythm Normal ECG When compared with ECG of 15-JAN-2022 09:32, No significant change was found Referred By: Althea Hernandez Electronically Signed By:LEA DIETZ
--- NOTE | 2022-04-18 21:45 | ED.GENADULT ---
HPI - General Adult General Chief complaint: Chest Pain Stated complaint: CP Time Seen by Provider: 04/18/22 21:32 Source: patient and EMS Mode of arrival: EMS Limitations: no limitations History of Present Illness HPI narrative: Patient comes to emergency room via ambulance from a [facility] facility. Patient was mostly obtained from EMS, patient was also able to participate. Patient states that she has been having weakness for about 3 days, feels too weak to even stand up. Denies fever chills. Complaining of a sore throat, denies any difficulty swallowing or breathing. Patient denies chest pain or shortness of breath. Patient states that recently she has been vomiting more often than usual Related Data Previous Rx's Medication Instructions Recorded promethazine 25 mg rectal 25 mg VT Q6H PRN nausea and 11/01/21 suppository (Promethegan) vomiting #12 ea ondansetron HCl 4 mg tablet 4 mg PO Q8H PRN nausea and 04/19/22 vomiting #14 tabs Allergies Allergy/AdvReac Type Severity Reaction Status Date / Time hydrocodone Allergy Unknown Verified 11/01/21 05:13 morphine Allergy Unknown Verified 11/01/21 05:13 naproxen [From Naprosyn] Allergy Unknown Verified 11/01/21 05:13 Penicillins Allergy Difficulty Verified 11/01/21 05:13 Breathing propoxyphene Allergy Unknown Verified 11/01/21 05:13 tramadol Allergy Unknown Verified 11/01/21 05:13 [facility] Social History Social History Alcohol intake: never Patient Tobacco Use Status: Never used Tobacco Advance Directives: Yes Advance Directives on File: Yes Advance Directives Date on File: 11/03/21 Physical Exam ED Vital Signs: Vital Signs - 24 hr 04/18/22 21:39 04/19/22 00:47 04/19/22 03:14 Temperature 98.3 F 98.4 F Pulse Rate 79 72 79 Respiratory Rate 20 19 19 Blood Pressure 153/101 H 151/92 H 168/99 H Pulse Oximetry 97 96 95 Oxygen Delivery Method Room Air Room Air Room Air BMI result Body Mass Index 42.5 Course Course Course Narrative: Patient's labs at baseline, but goes down within normal limits, hemoglobin 11.6 at baseline. No electrolyte abnormalities, LFTs normal appears normal, no UTI, serology negative for RSV/influenza/COVID, chest x-ray negative, CT scan shows a large hiatal hernia. Patient has not vomited here in the emergency room. Patient is coming from a [facility] facility. Patient will be returning with a prescription of Zofran Patient is adamant that she wants to be admitted. I discussed that at this time she does not have any criteria for admission. After a prolonged discussion with the patient, the reason that she wants to get admitted is because she is unhappy with the amount of food that she gets at her current facility. Patient states that she is very happy where she lives, however she would like more food. I offered to the patient to involve Case Management, to help us with the situation versus looking for different fci facility. Patient declined, patient states that the only thing that she will request is to have more food available to her Medications Administered Discontinued Medications Generic Name Dose Route Start Last Admin Trade Name Freq PRN Reason Stop Dose Admin Sodium Chloride 1,000 mls @ 999 mls/hr 04/18/22 21:40 04/19/22 02:05 Ns IVCONT 04/18/22 22:40 Not Given .Q1H1M ONE Lidocaine HCl 2 ml 04/18/22 22:54 04/19/22 00:16 Lidocaine Hcl 2% 2 Ml Vial INFILTRATI 04/18/22 22:55 2 ml ONCE ONE Administration Lidocaine HCl 15 ml 04/19/22 03:57 04/19/22 04:23 Lidocaine Hcl Viscous 2 % 15 Ml Solution MUCOUS MEM 04/19/22 03:58 15 ml ONCE ONE Administration Medical Decision Making Medical Decision Making Differential Diagnoses: Differential diagnosis (Viral syndrome, UTI, pharyngitis) Lab Attestation: I reviewed the patient's lab results. (Patient's labs are at baseline, urinalysis negative for UTI) Independent interpretation of EKG, rhythm strip, radiology study: Independent interp EKG,rhythm strip, radiology study I performed an independent interpretation of the: EKG and CT Scan (My interpretation is hiatal hernia, no acute findings. Report: FINDINGS: LUNG BASES: Atelectasis noted in the right lower lobe adjacent to a large hiatal hernia. LIVER, GALLBLADDER, AND BILIARY TREE: The liver is normal in size, shape, and attenuation. No focal hepatic lesion or biliary ductal di) My interpretation is sinus rhythm, heart rate 80, no ST segment depressions or elevations, no T-wave inversions, QTC 396, along with the normal troponin Independent historian (e.g., spouse, EMS, friend): Independent historian (e.g., spouse, EMS, friend) (EMS got history from the fci facility, patient has been complaining of weakness for 3 days, vomiting, sore throat) Clinical information obtained from an independent historian. History obtained from or confirmed by: EMS Discharge Plan Discharge Clinical Impression: Acute viral syndrome, Weakness Patient Disposition: Home, Self-Care Instructions: Acute Nausea and Vomiting (ED) Additional Instructions: CT scan shows that he have a large hiatal hernia, affecting your stomach. This is likely causing the nausea and vomiting that you are experiencing. Please follow-up with her primary care physician as you may need to be referred to a specialist. Also, patient is requesting to have her daily foot proportions increased. Patient states that she is very happy living at the current facility. However, she is hungry all the time and is requesting that she gets bigger proportions. Please follow-up with your primary care physician tomorrow. If you have any worsening or new symptoms, please return to the emergency room or call 911 Prescriptions: New ondansetron HCl 4 mg tablet 4 mg PO Q8H PRN (Reason: nausea and vomiting) Qty: 14 0RF No Action promethazine [Promethegan] 25 mg suppository 25 mg VT Q6H PRN (Reason: nausea and vomiting) Qty: 12 0RF
--- OUTSIDE RECORDS SUMMARY | 2022-04-18 21:57 | XMS_ITS | Continuity of Care Document ---
:1955 Author Organization [facility] Address [address] [place] [id number]- Care Team Providers Name Role Phone Alisson Tidwell MD Primary Care Physician Encounter [facility] [place] Date(s): 09/10/20 - 09/11/[address] [address]- Discharge Disposition: [facility] Attending Physician: Jung Polo DO Admitting Physician: Jung Polo DO Referring Physician: Not on Staff, Referring MD Allergies, Adverse Reactions, Alerts Substance Reaction Severity Status penicillin Active morphine Active Naprosyn Active traMADol Active HYDROcodone Active Medications acetaminophen 500 mg oral tablet 1 tablet = 500 mg, By Mouth, Every 6 hours, PRN pain/fever, Maintenance, 09/11/20 10:29:00 EDT, ; Start Date: 09/11/20 Status: Orderedaluminum hydroxide/magnesium hydroxide/simethicone 400 mg-400 mg- 40 mg/5 mL oral suspension 30 mL, By Mouth, Every 6 hours, PRN Dyspepsia, Maintenance, 09/11/20 10:24:00 EDT, ; Start Date: 09/11/20 Status: OrderedBENGAY Arthritis topical cream 1 application, Topically, 2 times a day, Maintenance, 09/11/20 10:36:00 EDT, ; Start Date: 09/11/20 Status: OrderedGuaifenesin 10 mL, By Mouth, Every 4 hours, PRN Cough, Maintenance, 09/11/20 10:28:00 EDT, ; Start Date: 09/11/20 Status: OrderedKeflex monohydrate 500 mg oral capsule 1 capsule = 500 mg, By Mouth, 2 times a day, for 7 days, # 14 capsule, 0 Refills, Acute 09/17/20 20:58:00 EDT, 09/10/20 20:58:00 EDT, Capsule, Partial fill upon patient request if the prescription is for a schedule II opioid drug. Start Date: 09/10/20 Stop Date: 09/17/20 Status: OrderedLORazepam 0.5 mg oral tablet 1 tablet = 0.5 mg, By Mouth, Every 4 hours, PRN anxiety/agitation, Maintenance, 09/11/20 10:25:00 EDT, ; Start Date: 09/11/20 Status: OrderedNarcan 4 mg/0.1 mL nasal spray 1 spray, Naris, Left, Once, Maintenance, 09/11/20 10:33:00 EDT, ; Start Date: 09/11/20 Status: OrderedNarcan Inj 1 mL, Intramuscular, Once, deltoid for suspected overdose, Maintenance, 09/11/20 10:32:00 EDT, Injection, ; Start Date: 09/11/20 Status: OrderedOxyCODONE IR Tablet 5 mg, Tablet, By Mouth, Once, STAT, 09/10/20 21:00:00 EDT, Stop date 09/10/20 21:00:00 EDT Start Date: 09/10/20 Stop Date: 09/10/20 Status: CompletedVentolin 90 mcg Inhaler 1, puffs, Inhalation, Every 6 hours, PRN, Maintenance, 09/11/20 10:24:00 EDT, Inhaler Start Date: 09/11/20 Status: Ordered Vital Signs Most recent to oldest 1 2 3 [Reference Range]: Oxygen Saturation [94-100 %] 98 % 98 % 98 % (09/11/20 12:30 AM) (09/10/20 10:21 PM) (09/10/20 8:38 PM) Pulse Rate [55-90 bpm] 86 bpm 88 bpm 92 bpm (09/11/20 12:30 AM) (09/10/20 10:21 PM) *H* (09/10/20 8:38 PM) Blood Pressure [90-138/55-84 mm 112/75 mm Hg 108/74 mm Hg 112/74 mm Hg Hg] (09/11/20 12:30 AM) (09/10/20 10:21 PM) (09/10/20 8:38 PM) Respiratory Rate [16-30 br/min] 16 br/min 16 br/min 16 br/min (09/11/20 12:30 AM) (09/10/20 11:21 PM) (09/10/20 10:2 1 PM) Temperature [96.8-100.4 DegF] 98.3 DegF 98.3 DegF 98 .3 DegF (09/11/20 12:30 AM) (09/10/20 10:21 PM) (09/10/20 8:38 PM) Mode of Delivery (Oxygen) Room air Room air Room a ir (09/11/20 12:30 AM) (09/10/20 10:21 PM) (09/10/20 8:38 PM) Blood pressure sites Arm, left Arm, left Arm, left (09/11/20 12:30 AM) (09/10/20 10:21 PM) (09/10/20 8:38 PM) Temperature Route Oral Oral Oral (09/10/20 10:21 PM) (09/10/20 8:38 PM) (09/10/20 6:12 PM)
--- OUTSIDE RECORDS SUMMARY | 2022-04-18 21:57 | XMS_ITS | Continuity of Care Document ---
:1955 Author Organization [facility] Address [address] [place] [address]- Care Team Providers Name Role Phone Alisson Tidwell MD Primary Care Physician Encounter [facility] [place] Date(s): 01/01/20 - 01/02/[address] [address]- [facility] [phone] Encounter Diagnosis Abdominal pain (Final) - 01/01/20 Discharge Disposition: A-D/C Home Attending Physician: Talon Love MD Admitting Physician: Talon Love MD Referring Physician: Not on Staff, Referring MD Allergies, Adverse Reactions, Alerts Substance Reaction Severity Status penicillin Active morphine Active Naprosyn Active traMADol Active HYDROcodone Active Vital Signs Most recent to oldest [Reference Range]: 1 2 Height 160 cm (01/01/20 9:23 PM) Weight 97.8 kg (01/01/20 9:23 PM) Oxygen Saturation [94-100 %] 97 % 96 % (01/02/20 12:55 AM) (01/01/20 9:23 PM) Pulse Rate [55-90 bpm] 88 bpm 85 bpm (01/02/20 12:55 AM) (01/01/20 9:23 PM) Blood Pressure [90-138/55-84 mm Hg] 134/90 mm Hg 138/ 94 mm Hg (01/02/20 12:55 AM) (01/01/20 9:23 PM) Respiratory Rate [16-30 br/min] 18 br/min 20 br/mi n (01/02/20 12:55 AM) (01/01/20 9:23 PM) Temperature [96.8-100.4 DegF] 97.8 DegF 97.1 DegF (01/02/20 12:55 AM) (8/25/20 9:23 PM) Mode of Delivery (Oxygen) Room air Room air (01/02/20 12:55 AM) (01/01/20 9:23 PM) Blood pressure sites Arm, left Arm, left (01/02/20 12:55 AM) (01/01/20 9:23 PM) Temperature Route Oral Oral (01/02/20 12:55 AM) (01/01/20 9:23 PM) Dry Weight 97.8 kg (01/01/20 9:23 PM)
--- OUTSIDE RECORDS SUMMARY | 2022-04-18 21:57 | XMS_ITS | Continuity of Care Document ---
:1955 Author Organization [facility] Address [address] [place] [id number]- Care Team Providers Name Role Phone Alisson Tidwell MD Primary Care Physician Encounter [facility] [place] Date(s): 09/23/20 - 10/23/[address] [address]- Allergies, Adverse Reactions, Alerts Substance Reaction Severity [...] 10:28:00 EDT, ; Start Date: 09/11/20 Status: OrderedLORazepam 0.5 mg oral tablet 1 [...] EDT, Injection, ; Start Date: 09/11/20 Status: OrderedVentolin 90 mcg Inhaler 1, puffs, Inhalation, Every 6 hours, PRN, Maintenance, 09/11/20 10:24:00 EDT, Inhaler Start Date: 09/11/20 Status: Ordered Problem List Condition Effective Dates Status Health Status Informant Bartholin cyst(Confirmed) Active
--- OUTSIDE RECORDS SUMMARY | 2022-04-18 21:57 | XMS_ITS | Continuity of Care Document ---
:1955 Author Organization [facility] Address [address] [place] [address]- Care Team Providers Name Role Phone Alisson Tidwell MD Primary Care Physician En[place] [facility] [place](s): 01/05/21 - 02/14/[address] [address] Attending Physician: Anny Landry CNM Admitting Physician: Anny Landry CNM Referring Physician: Anny Landry CNM Allergies, Adverse Reactions, Alerts Substance Reaction Severity [...]
--- OUTSIDE RECORDS SUMMARY | 2022-04-18 21:57 | XMS_ITS | Continuity of Care Document ---
:1955 Author Organization [facility] Address [address] [place] [id number]- Care Team Providers Name Role Phone Alisson Tidwell MD Primary Care Physician [place] [facility] [place] 02/27/[place] - 03/29/[address] [address]- Allergies, Adverse Reactions, Alerts Substance Reaction Severity [...]
--- OUTSIDE RECORDS SUMMARY | 2022-04-18 21:57 | XMS_ITS | Continuity of Care Document ---
:1955 Author Organization [facility] Address [address] [place] [address], [address] [address]- Care Team Providers Name Role Phone Alisson Tidwell MD Primary Care Physician Encounter 12/16/20 - 12/23/20 [facility] [address], [address] [address]- Attending Physician: Anny Landry CNM Admitting Physician: [...]
--- OUTSIDE RECORDS SUMMARY | 2022-04-18 21:58 | XMS_ITS | Continuity of Care Document ---
:1955 Author Organization [facility] Address [address] [place] [id number]- Care Team Providers Name Role Phone Alisson Tidwell MD Primary Care Physician Encounter [id number] Date(s): 12/31/20 - 01/30/[address] [address]- Attending Physician: Amandeep Darling Admitting Physician: Amandeep Darling Referring Physician: AdmtrAmandeep Allergies, Adverse Reactions, Alerts Substance Reaction Severity [...]
[2022-04-18 23:14] LABS: Strep A Nucleic Acid Negative (Negative)
[2022-04-18 23:39] LABS: MANUAL DIFF FLAG NO
[2022-04-18 23:42] LABS: Basophils Absolute Auto 0.1 X10*3/uL (0.0-0.2); Basophils Percent Auto 0.6 % (0-2); Eosinophils Absolute Auto 0.2 X10*3/uL (0.0-0.4); Eosinophils Percent Auto 1.9 % (0-4); Hematocrit 37.3 % (37.0-47.0); Hemoglobin 11.6 g/dl (12.0-16.0); Imm Gran Abs Auto 0.02 X10*3/uL (0.00-0.03); Imm Gran Pct Auto 0.3 % (0.0-0.4); Lymphocytes Absolute Auto 2.5 X10*3/uL (1.2-4.9); Mean Corpuscular HGB Conc 31.1 g/dl (31.0-35.0); Mean Corpuscular Hemoglobin 25.4 pg (27.0-33.0); Mean Corpuscular Volume 81.6 fL (80.0-98.0); Monocytes Absolute Auto 0.7 X10*3/uL (0.1-1.2); Monocytes Percent Auto 9.4 % (2-11); Neutrophils Absolute Auto 4.3 x10*3/uL (2.0-8.3); Neutrophils Percent Auto 55.8 % (45-73); Platelet Count 275 X10*3/uL (160-400); Red Blood Count 4.57 X10*6/uL (4.20-5.50); Red Cell Distribution Width 15.3 % (11.0-16.0); White Blood Count 7.7 X10*3/uL (4.8-10.8)
--- NOTE | 2022-04-18 23:43 | PC.NURSE ---
per dr reese HOLD iv NS fluids until labs have resulted
[2022-04-18 23:47] LABS: INTERNATIONAL NORM RATIO 1.1 (0.9-1.1); Prothrombin Time 12.5 SEC (10.0-13.1)
[2022-04-18 23:54] LABS: Lactic Acid 1.5 mmol/L (0.5-2.0)
[2022-04-19 00:05] LABS: Alanine Aminotransferase 17 U/L (0-31); Albumin Level 3.7 g/dL (3.5-5.0); Alkaline Phosphatase 92 U/L (39-117); Anion Gap 13 (12-20); Aspartate Amino Transferase 14 U/L (5-31); Bilirubin Direct < 0.2 mg/dL (0.0-0.5); Bilirubin Total 0.3 mg/dL (0.0-1.0); Blood Urea Nitrogen 16 mg/dL (9-16); Carbon Dioxide 27 mmol/L (22-29); Chloride 104 mmol/L (96-108); Creatinine Clr Calc Pharmacy 73.4; Estimated Glomerular Filt Rate > 60; Glucose Random 87 mg/dL (60-115); Lipase 18 U/L (8-78); Magnesium 1.8 mg/dL (1.6-2.6); Potassium 4.7 mmol/L (3.3-5.1); Sodium 139 mmol/L (135-145); Total Protein 6.4 g/dL (6.5-8.0)
[2022-04-19 00:08] LABS: B Type Natriuretic Peptide 23 pg/mL (<100)
[2022-04-19 00:09] LABS: Troponin-I High Sensitivity < 3.5 ng/L (<3.5-17.0)
[2022-04-19 00:23] LABS: Influenza A PCR NEGATIVE (Negative); Influenza B PCR NEGATIVE (Negative); Resp Syncy Virus RNA Qual PCR NEGATIVE (Negative); SARS COV2 PCR INHOUSE NEGATIVE (Negative)
[2022-04-19 00:30] LABS: Appearance Urine Clear; Color Urine Yellow; Glucose Urine UA Negative (Negative); Leukocyte Esterase Urine Negative (Negative); Nitrite Urine Negative (Negative); PH 7.5 (5.0-9.0); UMIC TRIGGER UACC YES; Urine Blood Negative (Negative); Urine Ketones Negative (Negative); Urine Protein 100 (2+) mg/dL (Neg-Trace)
[2022-04-19 00:35] LABS: Bacteria Urine None Seen (None Seen); Hyaline Casts Urine 0-2 /LPF (0-2); RBC Urine 0-2 /HPF (0-2); Squamous Epithelial Cell Urine 0-2 /HPF (0-2); WBC Urine 0-5 /HPF (0-5)
[2022-04-19 00:47] VITALS: BP 151/92; PULSE 72; RESP 19; O2SAT 96
--- NOTE | 2022-04-19 02:13 | MHC.EDTECH ---
Spoke with Althea barker [place] at [phone] for a bls transfer back to [facility]. Booked for 0730AM due to no availability at this time.Rn and Print Shop Helper aware
[2022-04-19 03:14] VITALS: BP 168/99; PULSE 79; RESP 19; TEMP 36.9; O2SAT 95
[2022-04-19] MEDS: Lidocaine HCl Viscous 2 % 15 ML SOLUTION MUCOUS MEM (04:23)
[2022-04-19 07:09] VITALS: BP 149/98; PULSE 94; RESP 14; TEMP 36.8; O2SAT 93
--- NOTE | 2022-04-19 08:41 | MHC.EDTECH ---
[facility] HERE NOW FOR TRANSPORT BACK TO [facility]
== END 2022-04-19 09:37 | disposition home or self-care (01) ==
PROVIDERS: Emergency Provider Emergency Medicine; PCP Internal Medicine
DX: B34.9 Viral infection, unspecified (principal); R07.89 Other chest pain; R53.1 Weakness; Z20.822 Contact with and (suspected) exposure to COVID-19; Z79.899 Other long term (current) drug therapy
CPT/HCPCS: 0241U; 71045; 74176; 80048; 80076; 81001; 83605; 83690; 83735; 83880; 84484; 85025; 85610; 87040; 87651; 93005; 99284; 99285

== ENCOUNTER 2023-01-05 13:08 | Outpatient (AMB) | payer MEDICARE, MEDICAID, SELFPAY ==
--- NOTE | 2023-01-05 13:13 | A.OFFVIS_ITS ---
Intake Vital Signs 01/05/23 13:18 Height 5 ft 3 in Weight 233 lb 4 oz BMI 41.3 BP 133/111 H Blood Pressure Location Rt brachial Position Sitting Pulse 105 H Pulse Source Pulse Oximeter Intake Visit Reasons: hiatal hernia, worsening gi symptoms Intake Note: Pt presents to the office today for a hiatal hernia, worsening gi symptoms. Pt states she has a lot of nauseaand is throwing up a lot. Allergies hydrocodone Allergy (Verified 01/05/23 13:19) Unknown morphine Allergy (Verified 01/05/23 13:19) Unknown naproxen [From Naprosyn] Allergy (Verified 01/05/23 13:19) Unknown Penicillins Allergy (Verified 01/05/23 13:19) Difficulty Breathing propoxyphene Allergy (Verified 01/05/23 13:19) Unknown tramadol Allergy (Verified 01/05/23 13:19) Unknown HPI HPI Comments History of Present Illness Details A 67 y/o female here to check HH- she is her with a pt band saw operator cake cutting she complains that she has 2 hernias in her stomach( point umbilicus and below) it does not really cause her pain but she can feel them after review Ct- large hiatal hernia involving entire stomach-discussed with the patient and her appetite kit, patient makes it very clear she does not want to have surgery. She cannot sleep on back She then tells me that she has nausea she sometimes vomits-unable to quantify- inconsistent She has no bowel issues. She has no fever or chills. No hematemesis, hematochezia PFSH Social History Alcohol intake: never Patient Tobacco Use Status: Never used Tobacco Advance Directives Date on File: 11/03/21 Review of Systems Const All systems reviewed & are unremarkable except as noted in HPI and below Card Denies chest pain and Denies dyspnea Resp Denies dyspnea GI Reports abdominal pain, Reports heartburn, Denies diarrhea, Reports nausea and Reports vomiting Physical Exam Vital Signs: Last Vital Signs Pulse 105 H 01/05/23 13:18 BP 133/111 H 01/05/23 13:18 BMI result Body Mass Index 41.3 Const General: cooperative, comfortable, no acute distress and alert Nutritional Appearance: overweight Orientation/consciousness: patient oriented x3 Resp Effort & Inspection: normal respiratory effort and able to speak in complete sentences Auscultation: clear to auscultation bilaterally, no rhonchi and no wheezes Cardio Rate: regular rate Rhythm: regular rhythm GI Inspection: Yes Abdominal panniculus present and Yes other (no bulge) Palpation (GI): Soft to palpation, nontender and no guarding Auscultation: normal bowel sounds Neuro General: patient oriented x3 Psych Speech and movement: Clear speech present Affect: Labile affect present Attitude: cooperative Results Reviewed Results Reviewed: CT/CT abdomen pelvis wo IV con IMPRESSION: No evidence of bowel obstruction. Large hiatal hernia containing essentially the entire stomach. GASTROINTESTINAL TRACT: Large hiatal hernia containing essentially the entire stomach. No evidence of bowel obstruction. There is mild colonic diverticulosis without diverticulitis. No significant bowel wall thickening is seen. No free fluid or free air is seen. Assessment & Plan Assessment & Plan (1) Nausea & vomiting: Comment: History nausea vomiting somewhat difficult to assess Reportedly infrequent- Reviewed CT from 04/2020 to large hiatal hernia Surgical referral-large hiatal hernia Code(s): R11.2 - Nausea with vomiting, unspecified Qualifiers: Vomiting type: unspecified Qualified Code(s): R11.2 - Nausea with vomiting, unspecified Plan: Further eval (2) Hiatal hernia: Comment: Needs surgical eval- concern for volvulus Code(s): K44.9 - Diaphragmatic hernia without obstruction or gangrene Plan: Refer for surgical consult Report any changes in symptoms-abdominal pain, nausea Plan Encouraged questions or concerns Surgical consult-appointment scheduled for 01/11 Patient Instructions: Pleasant 67-year-old female referred with intermittent nausea vomiting- periumbilical pain intermittent, Reviewed CT from 04/2020 to large hiatal hernia Surgical referral-large hiatal hernia Encouraged to call with any questions or concerns Patient advocate present Appreciate the opportunity assist in the care the patient Coding Level of Care Code New Pt Level 4 (49525) Diagnoses Nausea & vomiting R11.2 Vomiting type: unspecified Hiatal hernia K44.9 Time Spent (min) 35 Comment Patient advocate present
[2023-01-05 13:18] VITALS: BP 133/111; PULSE 105; BMI 41.3
== END 2023-01-05 14:34 | disposition home or self-care (01) ==
PROVIDERS: PCP Internal Medicine; Visit Provider Physician Assistant
DX: R11.2 Nausea with vomiting, unspecified (principal); K44.9 Diaphragmatic hernia without obstruction or gangrene
CPT/HCPCS: 99204

== ENCOUNTER → 2023-01-05 13:08 | Outpatient (BNVA) | payer MEDICARE, MEDICAID, SELFPAY | PROVIDERS: PCP Internal Medicine; Visit Provider Physician Assistant | DX: K44.9 Diaphragmatic hernia without obstruction or gangrene (principal); R11.2 Nausea with vomiting, unspecified | CPT/HCPCS: 99202 ==

== ENCOUNTER → 2023-01-11 13:09 | Outpatient (BNVA) | payer MEDICARE, MEDICAID, SELFPAY | PROVIDERS: PCP Internal Medicine; Referring Provider Physician Assistant; Visit Provider Surgery | DX: K44.9 Diaphragmatic hernia without obstruction or gangrene (principal); E66.01 Morbid (severe) obesity due to excess calories; Z68.41 Body mass index [BMI] 40.0-44.9, adult; E11.22 Type 2 diabetes mellitus with diabetic chronic kidney disease; I12.9 Hypertensive chronic kidney disease with stage 1 through stage 4 chronic kidney disease, or unspecified chronic kidney disease; N18.30 Chronic kidney disease, stage 3 unspecified; M32.9 Systemic lupus erythematosus, unspecified; F25.9 Schizoaffective disorder, unspecified; F31.81 Bipolar II disorder | CPT/HCPCS: 99202 ==

== ENCOUNTER 2023-01-11 13:11 | Outpatient (AMB) | payer MEDICARE, MEDICAID, SELFPAY ==
--- NOTE | 2023-01-11 13:10 | A.OFFVIS_ITS ---
Intake Vital Signs 01/11/23 13:22 Height 5 ft 3 in Weight 235 lb 2 oz BMI 41.6 BP 139/90 H Blood Pressure Location Rt brachial Position Sitting Pulse 104 H Pulse Source Pulse Oximeter Pulse Oximetry (%) 94 Oxygen Delivery Method Room Air Intake Visit Reasons: Hiatal hernia Home Supervisor Required: No International Travel Consultant: International Travel Consultant Present Accompanied by: Daughter Allergies hydrocodone Allergy (Verified 01/05/23 13:19) Unknown morphine Allergy (Verified 01/05/23 13:19) Unknown naproxen [From Naprosyn] Allergy (Verified 01/05/23 13:19) Unknown Penicillins Allergy (Verified 01/05/23 13:19) Difficulty Breathing propoxyphene Allergy (Verified 01/05/23 13:19) Unknown tramadol Allergy (Verified 01/05/23 13:19) Unknown Medication List - Last Reconciled 01/11/23 by Jason Arteaga MD albuterol sulfate 90 mcg/actuation 0 mcg inhalation alum-mag hydroxide-simeth 400-400-40 mg/5 mL 5 mL PO TID PRN cetirizine (Wal-Zyr (cetirizine)) 10 mg PO DAILY PRN cholecalciferol (vitamin D3) 1,250 mcg PO QWEEK cholestyramine (with sugar) 4 gram 1 ea PO DAILY clonazepam 0.5 mg PO DAILY PRN haloperidol 2 mg PO haloperidol decanoate mg IM Lactobacillus acidophilus (Acidophilus capsule) 10 mg PO DAILY loperamide (Anti-Diarrheal (loperamide)) 2 mg PO Q6H PRN lorazepam 0.5 mg PO DAILY PRN omeprazole 40 mg PO BID ondansetron HCl 4 mg PO Q8H PRN promethazine (Promethegan) 25 mg WA Q6H PRN simethicone (Gas Relief (simethicone)) 80 mg PO BID-QID PRN HPI HPI Comments History of Present Illness Details The patient is a 67-year-old woman with morbid obesity and a BMI of 41.7/weight of 235 lb who is accompanied by both of her adult daughters who are healthcare proxies. The patient has a history of schizoaffective disorder, bipolar disorder, hypertension, asthma/COPD, stage III CKD, lupus requiring prednisone, type 2 diabetes with unclear control who is seen because of a large hiatal hernia that was diagnosed on CT. Reviewing progress notes from [facility] reveals chronic issues of diarrhea/irritable bowel syndrome being managed. The patient stated emphatically multiple times at her visit that she is not interested in an operation. She reports good control of her GERD and reports no dysphagia she states she has been started on omeprazole and adequately controls her symptoms. GERD questionnaire is 13 but the patient notes she is satisfied as long as she takes her PPI ESS 2, but the patient reports fatigue that improves with eating spaghetti O's and canned ravioli. Patient gave permission to speak in front of her daughter's and notes that she is edentulous which is why she tends to eat processed foods. The daughter's note that there is an unclear plan regarding fitting her for dentures. While the patient reports she is at the heaviest weight of her life, she notes that her health promotion educator states that her weight has been stable and is pleased with her progress. Patient notes that she was in [facility] [place] as an and had some type of abdominal operation for a blocked stomach at 3 weeks of age. She also notes that she had to have ankle surgery at [facility], and his also had an appendectomy. [facility] Surgical History Hx of section Hx of cholecystectomy Hx of ovarian cystectomy Family History Father Cancer Mother Lung cancer Paternal Grandfather Cancer Social History Alcohol intake: never Patient Tobacco Use Status: Never used Tobacco Advance Directives Date on File: 11/03/21 Review of Systems Const All systems reviewed & are unremarkable except as noted in HPI and below Reports as per HPI Physical Exam Vital Signs: Last Vital Signs Pulse 104 H 01/11/23 13:22 BP 139/90 H 01/11/23 13:22 Pulse Ox 94 01/11/23 13:22 Oxygen Delivery Method Room Air 01/11/23 13:22 BMI result Body Mass Index 41.6 The patient is non-toxic & in good spirits NC/AT, PERRLA, EOMI Mood, affect & judgment all appear appropriate Sclera anicteric conjunctiva pink and moist Oropharynx is clear with no aphthous ulcers, Mallampati class 4, mucous membranes moist The patient is edentulous Neck is supple with no masses, adenopathy or bruits Heart is regular, normal S1-S2 no rubs or murmurs Lungs are clear and equal anteriorly with no audible wheezing, rubs or dullness to percussion Abdomen is obese with no demonstrable hernias. No HSM, tenderness, rebound, rigidity, guarding, masses or bruits are present. A well-healed infraumbilical midline scar is present with no palpable hernias Rectal exam is deferred Skin has good turgor and is free of rashes Extremities free of cyanosis clubbing edema Results Reviewed Results Reviewed: 04/18/[address] demonstrating a large hiatal hernia is noted and reviewed. Assessment & Plan Assessment & Plan (1) Hiatal hernia: Comment: Needs surgical eval- concern for volvulus Code(s): K44.9 - Diaphragmatic hernia without obstruction or gangrene (2) Morbid (severe) obesity due to excess calories: Code(s): E66.01 - Morbid (severe) obesity due to excess calories (3) DMII (diabetes mellitus, type 2): Code(s): E11.9 - Type 2 diabetes mellitus without complications (4) CKD (chronic kidney disease), stage III: Code(s): N18.30 - Chronic kidney disease, stage 3 unspecified (5) Lupus (systemic lupus erythematosus): Code(s): M32.9 - Systemic lupus erythematosus, unspecified (6) Schizoaffective disorder: Code(s): F25.9 - Schizoaffective disorder, unspecified (7) Bipolar 2 disorder: Code(s): F31.81 - Bipolar II disorder (8) HTN (hypertension): Code(s): I10 - Essential (primary) hypertension Plan By clinical history provided today, the patient is not having symptoms of obstruction or volvulus. The patient has multiple comorbidities that would need to be addressed before considering laparoscopic hiatal hernia repair including her obesity, CKD stage III, diabetes; this is all complicated by the fact that the patient repeatedly stated that she would not have an operation. The patient may benefit from a high-protein diet and dentures; limiting her availability of canned/processed pasta might help contribute to some weight loss. Exercise would obviously be important, but the patient noted that she is not interested in any weight loss program. From the patient's perspective, she does not wish to do anything further at this time. She is, however, in agreement to try to help herself. Will assess the patient's PCP to provide most recent labs before repeating them; the patient will likely benefit from having her anatomy defined with an upper GI. The patient's morbidity obesity increases the risk of operative repair failure. Given the complexities of this case, the option of a 2nd opinion at a [facility] was discussed with the patient and daughters and they will give this consideration. Patient and daughters declined a follow-up with me but wanted to be sure that GI would be overseeing PPI management. In the few records that I have from Dr. Abernathy, he has already started the patient on a PPI and notes from the facility regarding upper GI symptoms or difficulty would be helpful and justifying proceeding with surgery if she is having ongoing dysphagia, vomiting or hematemesis. Coding Level of Care Code New Pt Level 4 (20608) Diagnoses Hiatal hernia K44.9 Morbid (severe) obesity due to excess calories E66.01 DMII (diabetes mellitus, type 2) E11.9 CKD (chronic kidney disease), stage III N18.30 Lupus (systemic lupus erythematosus) M32.9 Schizoaffective disorder F25.9 Bipolar 2 disorder F31.81 HTN (hypertension) I10
[2023-01-11 13:22] VITALS: BP 139/90; PULSE 104; O2SAT 94; BMI 41.6
== END 2023-01-11 14:28 | disposition home or self-care (01) ==
PROVIDERS: PCP Internal Medicine; Referring Provider Physician Assistant; Visit Provider Surgery
DX: K44.9 Diaphragmatic hernia without obstruction or gangrene (principal); E66.01 Morbid (severe) obesity due to excess calories; E11.9 Type 2 diabetes mellitus without complications; N18.30 Chronic kidney disease, stage 3 unspecified; M32.9 Systemic lupus erythematosus, unspecified; F25.9 Schizoaffective disorder, unspecified; F31.81 Bipolar II disorder; I10 Essential (primary) hypertension
CPT/HCPCS: 99204